=== PATIENT | female | born 1960 | race Caucasian/White ===

== ENCOUNTER 2016-05-29 07:11 | Day surgery (SDC) | payer BC ==
[2016-05-29] MEDS ORDERED: Dextrose 5%-Lactated Ringers 1,000 ML IV SCH (07:30)
[2016-05-29] MEDS ORDERED: Propofol 200 MG/20 ML SDV ONE (08:03)
[2016-05-29] MEDS ORDERED: fentaNYL 100 MCG/2 ML SDV ONE (08:03)
[2016-05-29] MEDS ORDERED: Midazolam 1 MG/ML 2 ML SDV ONE (08:03)
[2016-05-29 09:16] VITALS: BP 107/68
[2016-05-29] MEDS ORDERED: Barium Sulfate 0.1% Susp 450 ML Bottle PO PRN (09:21)
[2016-05-29] MEDS ORDERED: Barium Sulfate 105% w/v Susp 1,900 ML Bottle PO ONE (09:44)
--- NOTE | 2016-05-29 10:42 | CR ---
Barium Enema Comp HISTORY: Incomplete colonoscopy. COMPARISON: CT abdomen 02/18/2008 FINDINGS: Moderately redundant sigmoid colon and splenic flexure. There is no persistent narrowing o f the colon. No extrinsic mass effect on the colon. No obvious filling defects seen. Impression: Very redundant colon. No acute suspicious findings seen.
--- NOTE | 2016-06-05 22:56 | OR ---
DATE OF PROCEDURE: 05/29/2016 PREOPERATIVE DIAGNOSIS: Indications for screening colonoscopy. POSTOPERATIVE DIAGNOSIS: Normal colonoscopy to the level of the distal transverse colon (highly redundant colon prohibiting complete colonoscopy). OPERATIVE PROCEDURE: Flexible colonoscopy to level of distal transverse colon ([id number]). ANESTHESIA: IV sedation. INDICATION FOR PROCEDURE: This 55-year-old female presenting for a screening colonoscopy. She had her last colonoscopy several years ago and at that time, this was noted to be incomplete. The plan is to proceed with the colonoscopy with biopsy and polypectomy as indicated. Potential risks including bleeding and perforation were discussed, and the patient wishes to proceed. DETAILS OF PROCEDURE: The patient was taken to the operating room and placed in a left lateral decubitus position. IV sedation was administered after which the initial digital rectal exam was performed and was unremarkable. Colonoscope was then passed to the level of the distal transverse colon. The scope could not be passed proximal to that as the patient appeared to have quite redundant sigmoid colon at that level, however, no abnormalities were noted. The prep was good and the scope was withdrawn and the above findings reconfirmed. The patient subsequently underwent a barium enema x-ray to examine the remainder of the colon. Other than the marked redundancy of the colon, no abnormalities were noted. Recommendation would be to repeat the colonoscopy in 10 years unless symptoms are such that earlier exam would be warranted or it became where the colonoscopy was probably the best approach, although it will undoubtedly be incomplete. If any polyps or other problems were seen, it could be dealt with at that time. The patient could then undergo a barium enema the same day to examine the remainder of the colon as indicated. Yaniv Zhang MD /[id number]
== END 2016-05-29 10:25 | disposition home or self-care (01) ==
LOC: JP.SDS 07:11
PROVIDERS: ATTEND Surgery
DX: Z12.11 Encounter for screening for malignant neoplasm of colon (principal); K21.9 Gastro-esophageal reflux disease without esophagitis
CPT/HCPCS: 45378; 74270; J2250; J2704; J3010; J7042